=== PATIENT | female | born 1975 | race Caucasian/White ===

== ENCOUNTER → 2016-06-08 | Outpatient (CLI) | payer OTHER ==
[2016-06-08 19:09] LABS: ALT 25 U/L (9-52); AST 22 U/L (14-36); Alkaline Phosphatase 64 U/L (38-126); Anion Gap 13 mmol/L; Blood Urea Nitrogen 9 mg/dL (7-17); Calcium 9.4 mg/dL (8.4-10.2); Carbon Dioxide 25 mmol/L (22-30); Chloride 106 mmol/L (98-107); Cholesterol 202 mg/dL (<200); Glucose 91 mg/dL (74-99); HDL Cholesterol 51 mg/dL (40-60); Non-African American GFR(MDRD) >60 (>60 ml/min/1.73 sqM); Potassium 4.1 mmol/L (3.5-5.1); Sodium 144 mmol/L (137-145); Total Bilirubin 0.4 mg/dL (0.2-1.3); Total Protein 7.8 g/dL (6.3-8.2); Triglycerides 146 mg/dL (<150)
[2016-06-08 19:18] LABS: Anisocytosis Slight; Basophils % (A) 1 %; CH 25.7; CHCM 29.9; Eosinophils # (A) 0.1 k/uL (0-0.7); Eosinophils % (A) 3 %; HDW 2.73; HGB 10.2 gm/dL (11.4-16.0); Hypochromasia Marked; Luc # (Auto) 0.03; Luc % (Auto) 1; Lymphocytes # (A) 0.9 k/uL (1.0-4.8); Lymphocytes % (A) 27 %; MCH 26.6 pg (25.0-35.0); MCHC 30.9 g/dL (31.0-37.0); Mean Platelet Volume 9.2; Monocytes # (A) 0.2 k/uL (0-1.0); Monocytes % (A) 5 %; Neutrophils % (A) 63 %; RBC 3.84 m/uL (3.80-5.40); WBC 3.2 k/uL (3.8-10.6); WBC (Perox) 3.61
== END ==
LOC: MMGSC 10:40
PROVIDERS: ATTEND Family Medicine
DX: Z00.00 Encounter for general adult medical examination without abnormal findings (principal); Z85.850 Personal history of malignant neoplasm of thyroid
CPT/HCPCS: 36415; 80053; 80061; 84439; 84443; 84480; 85025

== ENCOUNTER → 2016-07-06 | Outpatient (CLI) | payer OTHER ==
--- NOTE | 2016-07-06 14:43 | US ---
EXAMINATION TYPE: US thyroid st tissue head/neck DATE OF EXAM: 07/06/2016 12:57 PM COMPARISON: NONE CLINICAL HISTORY: 40 year-old female with history of Thyroid Ca Z85.850. TECHNIQUE: Multiple sonographic images of the thyroid gland are obtained. FINDINGS: GLAND SIZE: Patient is post thyroidectomy in 2006. NODULES RIGHT: # of nodules measured on right thyroid bed: 1. 0.8 X 0.6 x 0.5 cm echogenic solid nodule at the mid thyroidectomy bed with well-defined margins . This nodule is taller than wide and shows trace intranodular vascularity. No prior LEFT: # of nodules measured on left thyroid bed: 2 1. 1.2 X 0.8 x 1.1 cm lobulated hypoechoic mixed nodule at the lower thyroidectomy bed. This nodule is wider than tall and shows no intranodular vascularity. No prior 2. 0.8 X 0.8 x 1.0 cm slightly lobulated hypoechoic solid nodule at the lower thyroidectomy bed. Thi s nodule is wider than tall and shows no intranodular vascularity. No prior ISTHMUS: # of nodules measured in the isthmus: 0 Bilateral neck scanned, no evidence of lymphadenopathy. IMPRESSION: 1. An 8 mm focus of echogenic tissue in the mid right thyroidectomy bed could represent residual or r egenerative glandular parenchyma. 2. Two soft tissue nodules within the left thyroidectomy bed measuring 1.2 and 1.0 cm. Given the leigh ent's history of thyroid cancer, recommend correlation with thyroglobulin and antibody levels. Follo wup and further workup as indicated.
== END | disposition home or self-care (01) ==
LOC: RADUSWWP 12:38
PROVIDERS: ATTEND Family Medicine
DX: Z08 Encounter for follow-up examination after completed treatment for malignant neoplasm (principal); E04.2 Nontoxic multinodular goiter; Z85.850 Personal history of malignant neoplasm of thyroid; Z90.89 Acquired absence of other organs
CPT/HCPCS: 76536

== ENCOUNTER → 2016-07-12 | Outpatient (CLI) | payer OTHER | END | disposition home or self-care (01) | LOC: MMGSC 14:54 | PROVIDERS: ATTEND Family Medicine | DX: Z08 Encounter for follow-up examination after completed treatment for malignant neoplasm (principal); Z85.850 Personal history of malignant neoplasm of thyroid | CPT/HCPCS: 36415; 84432; 86800 ==

== ENCOUNTER 2016-09-10 12:10 | Day surgery (SDC) | payer OTHER ==
[2016-09-10 12:37] VITALS: RESP 14; TEMP 97.7
[2016-09-10] MEDS ORDERED: ALPRAZolam 0.5 MG TAB PO STA (12:52)
[2016-09-10 14:14] VITALS: BP 110/74; PULSE 75
--- NOTE | 2016-09-10 14:38 | US ---
EXAMINATION TYPE: US FNA thyroid DATE OF EXAM: 09/10/2016 COMPARISON: Prior ultrasound 07/06/2016 HISTORY: Thyroid nodule, E04.1 Maximal barrier technique was utilized. Ultrasound using sterile technique. The skin overlying the no dule was localized with ultrasound and the overlying skin prepped and draped. Lidocaine used for loca l anesthesia. 5 passes with a 25-gauge needle were made into the lower pole left thyroid nodule under ultrasound guidance. Aspirate specimen submitted to cytology. Following the procedure hemostasis ach ieved. No immediate complication IMPRESSION: Status post ultrasound-guided fine-needle aspiration of thyroid nodule, pathology pending .
--- NOTE | 2016-09-10 15:12 | US ---
EXAMINATION TYPE: US FNA thyroid DATE OF EXAM: 09/10/2016 COMPARISON: NONE HISTORY: Thyroid nodule, E04.1 Maximal barrier technique was utilized. Ultrasound using sterile technique. The skin overlying the no dule was localized with ultrasound and the overlying skin prepped and draped. Lidocaine used for loca l anesthesia. 5 passes with a 25-gauge needle were made into the mid pole left thyroid nodule under u ltrasound guidance. Aspirate specimen submitted to cytology. Following the procedure hemostasis achie ann. No immediate complication IMPRESSION: Status post ultrasound-guided fine-needle aspiration of thyroid nodule, pathology pending . The right-sided thyroid nodule was not accessed. The echogenic appearance may represent fat, discrete nodule is not identified with certainty. Follow-up recommended.
[2016-09-12 14:28] LABS: Mis test requested (Non-blood) THYROGLOBULIN FNA
[2016-09-12 14:47] LABS: Mis test requested (Non-blood) THYROGLOBULIN FNA
== END 2016-09-10 14:20 | disposition home or self-care (01) ==
LOC: RADPROMAIN 12:10
PROVIDERS: ATTEND Internal Medicine Endocrinology, Diabetes & Metabolism
DX: C73 Malignant neoplasm of thyroid gland (principal)
CPT/HCPCS: 10022; 76942; 84432; 88173; 88305

== ENCOUNTER → 2016-09-26 | Outpatient (CLI) | payer OTHER ==
--- NOTE | 2016-09-26 14:02 | CT ---
EXAMINATION TYPE: CT neck chest w con DATE OF EXAM: 09/26/2016 COMPARISON: NONE HISTORY: Thyroid cancer CT DLP: 682.9 mGycm CONTRAST: CT scan of the neck is performed with IV Contrast, patient injected with 100 mL of Omnipaque 300. Contrast enhanced CT of the neck was performed from the skull base through the lung apices. AIRWAY: The supraglottic, glottic, and subglottic portions of the airway appear patent and free of mass. SALIVARY GLANDS: The submandibular and parotid glands are free of mass or inflammatory process. THYROID GLAND: There are changes of thyroidectomy. Within the lower aspect of the left thyroid bed th ere are 3 nodules identified which measure 1.3 x .8 cm, 1.0 x 0.9 cm and 6 mm respectively. These may reflect lymph nodes. Current disease is not excluded. Right thyroid bed is clear. LYMPH NODES: No adenopathy seen greater than 1cm. LUNG APICES: No nodule or mass is seen. OTHER: Vascular structures are patent. No significant degenerative change of the cervical spine. N o abscess seen. IMPRESSION: Thyroidectomy changes. Nodularity within the lower aspect of the left thyroid bed as [facility] I cannot exclude adenopathy or recurrent lesions. Correlate clinically.
== END | disposition home or self-care (01) ==
LOC: RADCTMAIN 12:55
PROVIDERS: ATTEND Surgery
DX: Z08 Encounter for follow-up examination after completed treatment for malignant neoplasm (principal); E04.1 Nontoxic single thyroid nodule; Z85.850 Personal history of malignant neoplasm of thyroid
CPT/HCPCS: 70491; 71260; Q9967

== ENCOUNTER 2016-11-13 07:05 | Day surgery (SDC) | payer OTHER ==
[2016-11-07 12:14] VITALS: BMI 29.1
[~2016-11-13 07:05] MED LIST: DEXAMETHASONE SOD PHOSPHATE 10 MG/ML 1 ML VIAL IV ONE; HEPARIN SODIUM,PORCINE 5,000 UNIT/ML 1 ML VIAL SQ ONE; LACTATED RINGERS 1,000 ML IV SCH; ONDANSETRON 4 MG/2 ML VIAL IVP ONE; Pre Op ABX Message 1 EACH MISC MISCELLANE ONE
[2016-11-13] MEDS ORDERED: LIDOCAINE 1% 20 ML VIAL (10MG/ML) FOR IV START INTRADERMA ONE (07:51)
[2016-11-13] MEDS ORDERED: ALPRAZolam 0.5 MG TAB PO PRN (07:54)
[2016-11-13] MEDS ORDERED: MIDAZOLAM 2 MG/2 ML VIAL ONE (09:48)
[2016-11-13] MEDS ORDERED: fentaNYL (PF) 50 MCG/ML 2 ML AMP ONE (09:48)
[2016-11-13] MEDS ORDERED: PHENYLEPHRINE-0.9% NACL SYG 1 MG/10 ML SYRINGE ONE (09:48)
[2016-11-13] MEDS ORDERED: HEPARIN SODIUM,PORCINE 5,000 UNIT/ML 1 ML VIAL SQ ONE (09:48)
[2016-11-13] MEDS ORDERED: LIDOCAINE 1% INJ 10MG/ML (20 ML MDV) ONE (09:48)
[2016-11-13] MEDS ORDERED: PROPOFOL 10 MG/ML 20 ML VIAL IV ONE (09:48)
[2016-11-13] MEDS ORDERED: CLINDAMYCIN 150 MG/ML 4 ML VIAL ONE (09:48)
[2016-11-13] MEDS ORDERED: ROCURONIUM BROMIDE 10 MG/ML 10 ML VIAL IV ONE (09:48)
[2016-11-13] MEDS ORDERED: SUCCINYLCHOLINE CHLORIDE 100 MG/5 ML SYR IV ONE (09:48)
[2016-11-13] MEDS ORDERED: LACTATED RINGERS 1,000 ML IV ONE (10:05)
[2016-11-13] MEDS ORDERED: SODIUM CHLORIDE 0.9% 50 ML with CLINDAMYCIN 600 MG IV ONE ×2 (10:17)
[2016-11-13] MEDS ORDERED: THROMBIN (BOVINE) 5,000 UNIT VIAL TOPICAL ONE (11:00)
[2016-11-13] MEDS ORDERED: GELATIN SPONGE,ABSORB (SMALL) 1 EACH SPONGE TOPICAL ONE (11:00)
[2016-11-13] MEDS ORDERED: NALOXONE 0.4 MG/ML 1 ML VIAL IV PRN (11:37)
[2016-11-13] MEDS ORDERED: ONDANSETRON 4 MG/2 ML VIAL IVP PRN (11:37)
--- NOTE | 2016-11-13 11:37 | P.OP ---
Date of Procedure: 11/13/16 Preoperative Diagnosis: Recurrent papillary thyroid cancer Postoperative Diagnosis: Same Procedure(s) Performed: Neck exploration resection of recurrent papillary thyroid cancer Anesthesia: BEKA Surgeon: Cat Contreras Estimated Blood Loss (ml): 15 IV fluids (ml): 1,000 Pathology: other (Tissue left paratracheal area, frozen section the first specimen consistent with papillary thyroid cancer) Condition: stable Disposition: PACU Indications for Procedure: Recurrent papillary thyroid cancer initial thyroidectomy 2011 Operative Findings: three Areas of nodularity left paratracheal area had no other adenopathy or nodularity noted Description of Procedure: The patient is a 41-year-old white female status post thyroid resection in 2012 for papillary thyroid carcinoma. She subsequently had recurrence and another stable and had a resection of recurrence and was treated initially with radioactive iodine. The patient sent for radiographic studies and noted to have an area of concern in the left paratracheal area and biopsy revealed findings consistent with papillary thyroid cancer. The patient was taken to the operative suite and following sedation a nimm nerve stimulator was placed, the neck was prepped and draped in a sterile fashion. An incision was made through the old collar incision down through the skin and subcutaneous tissue and platysma. Superior and inferior skin flaps were developed. Although there was scar tissue we were able to delineate this tissue plane. The trachea was identified and the strap muscles on the left side was dissected from the trachea. Upon performing this the area of the nodularity was identified. This was resected it was approximately 1 cm in size and sent for frozen section evaluation. This was consistent with papillary thyroid cancer. Two additional areas superior to this were identified. The first was approximately 15 mm, in size and the second was approximately 8 mm in size. Both of these were removed in toto. During this process the Nimm nerve stimulator was used to assure that the recurrent laryngeal nerve was not injured. We obtained intraoperative consultation with Dr. Rosario from radiology who confirmed that the areas we had removed were consistent with those which had been seen on ultrasound. Following this careful palpation in the neck and evaluation did not reveal any further adenopathy or lesions of concern. The area of resection was performed from the area of the carotids to the trachea. The recurrent laryngeal nerve was not identified. After we were assured that hemostasis was attained and no further adenopathy or areas of concern in either the right or left neck was noted it was determined that we would terminate the procedure. A small Elliott drain was placed. The strap muscles were closed in the midline. The platysma was closed using 3-0 Vicryl suture. The skin was closed using 4-0 Monocryl. The drain was secured using a nylon suture. The patient tolerated the procedure in stable condition. All instrument and sponge counts were correct at the end of the case.
[2016-11-13] MEDS: HYDROmorphone 0.5 MG/0.5 ML SYRINGE IVP PRN ×2 (12:15→12:21)
[2016-11-13] MEDS: DEXTROSE 5%-0.45% NACL 1,000 ML IV SCH (13:58)
[2016-11-13] MEDS: HYDROmorphone 1 MG/ML 1 ML SYRINGE IV PRN ×3 (14:03→20:46)
[2016-11-13] MEDS: HEPARIN SODIUM,PORCINE 5,000 UNIT/ML 1 ML VIAL SQ SCH (20:45)
[2016-11-13] MEDS: FAMOTIDINE 20 MG TAB PO SCH (20:46)
[2016-11-14 06:26] LABS: Anion Gap 9 mmol/L; Blood Urea Nitrogen 4 mg/dL (7-17); Calcium 8.7 mg/dL (8.4-10.2); Carbon Dioxide 23 mmol/L (22-30); Chloride 108 mmol/L (98-107); Glucose 115 mg/dL (74-99); Magnesium 1.9 mg/dL (1.6-2.3); Non-African American GFR(MDRD) >60 (>60 ml/min/1.73 sqM); Potassium 4.4 mmol/L (3.5-5.1); Sodium 140 mmol/L (137-145)
[2016-11-14] MEDS: LEVOTHYROXINE 100 MCG TAB PO SCH (06:31)
[2016-11-14] MEDS: DEXTROSE 5%-0.45% NACL 1,000 ML IV SCH ×3 (06:31→17:43)
[2016-11-14 06:44] LABS: Basophils % (A) 0 %; CH 25.2; CHCM 30.7; Eosinophils % (A) 0 %; HCT 30.8 % (34.0-46.0); HDW 2.83; HGB 9.5 gm/dL (11.4-16.0); Hypochromasia Moderate; Luc # (Auto) 0.09; Luc % (Auto) 1; Lymphocytes # (A) 0.9 k/uL (1.0-4.8); Lymphocytes % (A) 10 %; MCH 25.4 pg (25.0-35.0); MCHC 30.8 g/dL (31.0-37.0); MCV 82.5 fL (80.0-100.0); Mean Platelet Volume 9.5; Monocytes # (A) 0.5 k/uL (0-1.0); Monocytes % (A) 5 %; Neutrophils # (A) 7.8 k/uL (1.3-7.7); Neutrophils % (A) 84 %; RBC 3.73 m/uL (3.80-5.40); RDW 15.7 % (11.5-15.5); WBC 9.3 k/uL (3.8-10.6); WBC (Perox) 9.94
--- NOTE | 2016-11-14 07:08 | P.CONS ---
History of Present Illness - Reason for Consult Consult date: 11/14/16 medical management post operative Requesting physician: Cat Contreras - Chief Complaint post operative care - History of Present Illness 41 year old female with history of recurrent papillary thyroid carcinoma with Recurrence x3 initial diagnosis 2009 (surgery), then 2011 (Radioactive iodine) , then 2013 (surgery). Now Nodules x3. presented electively for neck dissection due to positive results on PET scan suspicious of recurrence of cancer, frozen section confirmed recurrence of cancer, now patient is seen POD #1 , tolerated procedure well, no difficulty with breathing , swallowing or hoarseness of voice. neck dressing was changed this AM due to being soaked with blood,. patient feels well, and denies any chest pain , SOB, fever or chills. She reports some upper lip tingling and numbness that started after midnight. 3 calcium levels obtained yesterday were unremarkable and stable. Review of Systems Constitutional: Patient reports no fever, no chills, no night sweating, no significant weight changes Eyes: Patient reports no visual changes, no eye pain ENT: Patient reports no ear pain, no rhinorrhea, she reports some mild sore throat post op Cardiovascular: Patient reports no chest pain, no exertional dyspnea, no peripheral leg edema, no orthopnea, no paroxysmal nocturnal dyspnea Respiratory:Patient reports no cough, no wheezing, no shortness of breath Gastrointestinal: Patient reports no diarrhea, no constipation, no nausea no vomiting, no abdominal pain Genitourinary: Patient reports no dysuria, no hematuria, no changes in urinary habits, no genital lesions Musculoskeletal: Patient reports no muscle pain, no joint pain Psychiatric: Patient reports no changes in mood or memory, no suicidal ideation , no anxiety Endocrine: Patient reports no heat intolerance, no cold intolerance, no excessive thirst, no polyuria Neurological: Patient reports no focal neurologic deficits, no weakness, no numbness, She reports upper lip tingling Hem/Lymphatic: Patient reports no bleeding tendency, no bruising, no swollen lymph glands Allergic/Immun: Patient reports no recent allergic reactions Skin: Patient reports no rashes, no pruritis, no ulcers Past Medical History Past Medical History: Blood Disorder, Cancer, CVA/TIA, Deep Vein Thrombosis (DVT ), Thyroid Disorder Additional Past Medical History / Comment(s): Recurrent Papillary Thyroid Cancer x3 initial diagnosis 2009, then 2011, then 2013. Now Nodules x3. Positive for FACTOR 5. DVT & TIA STROKE in 2013. No residual effects. Psoriasis History of Any Multi-Drug Resistant Organisms: None Reported Past Surgical History: Section, Tubal Ligation Additional Past Surgical History / Comment(s): Complete thyroid removed d/t Papillary Thyroid Cancer in 2011. Papillary Thyroid Cancer returned & had it removed again. Nodules x3 now Past Anesthesia/Blood Transfusion Reactions: No Reported Reaction Past Psychological History: Anxiety Additional Psychological History / Comment(s): d/t high dose thyroid medication. Smoking Status: Never smoker Past Alcohol Use History: Rare Past Drug Use History: None Reported - Past Family History Father Family Medical History: Myocardial Infarction ([place]) Mother Family Medical History: Cancer Additional Family Medical History / Comment(s): Breast Cancer at age 23. Medications and Allergies Home Medications and Allergies Comment(s): Reviewed Home Medications Medication Instructions Recorded Confirmed Type Aspirin 325 mg PO DAILY 08/29/16 11/07/16 History Cholecalciferol [Vitamin D3] 5,000 unit PO DAILY 08/29/16 11/13/16 History Ferrous Sulfate [Iron] 325 mg PO DAILY 08/29/16 11/13/16 History Levothyroxine Sodium [Levo-T] 300 mcg PO DAILY 08/29/16 11/13/16 History Allergies Allergy/AdvReac Type Severity Reaction Status Date / Time Penicillins Allergy Unknown Unknown Verified 11/07/16 12:04 Physical Exam Vitals: Vital Signs Temp Pulse Pulse Resp BP BP Pulse Ox 11/14/16 00:00 98.1 F 68 18 93/55 98 11/13/16 20:50 98.5 F 90 18 118/62 97 11/13/16 15:00 97.0 F L 69 19 108/66 97 11/13/16 14:50 76 19 109/73 97 11/13/16 14:00 74 19 98/71 97 11/13/16 13:30 72 19 116/79 94 L 11/13/16 13:15 74 19 117/88 95 11/13/16 13:00 97.2 F L 67 19 109/81 98 11/13/16 12:30 76 16 118/71 97 11/13/16 12:19 73 16 120/66 100 11/13/16 12:04 82 16 128/81 100 11/13/16 11:49 97.6 F 86 14 130/74 100 11/13/16 07:23 97.0 F L 81 16 130/87 99 Intake and Output 11/13/16 11/13/16 11/14/16 14:59 22:59 06:59 Intake Total 2003 580 Output Total 365 Balance 1639 580 Intake: IV 2003 Oral 580 Output: Urine 350 Estimated Blood Loss 15 Other: Voiding Method Toilet # Voids 1 2 Constitutional: No acute distress, conversant, pleasant, speech is coherent negative chvostek sign Eyes: Anicteric sclerae, moist conjunctiva, no lid-lag Pupils equal round reactive to light ENMT: NC/AT Oropharynx clear, no erythema, exudates Neck: Supple, FROM, no masses, or JVD No carotid bruits surgical dressing over anterior lower neck with tinge of blood over the lower aspect, otherwise, intact dressing, no tenderness to palpation Lungs: Clear to auscultation Clear to percussion Normal respiratory effort, no accessory muscle use Cardiovascular: Heart regular in rate and rhythm, No murmurs, gallops, or rubs No peripheral edema Abdominal: Soft Nontender, no guarding, rebound or rigidity Abdomen moving with respiration Normoactive bowel sounds No hepatomegaly, No splenomegaly No palpable mass No abdominal wall hernia noted Skin: Normal temperature, tone, texture, turgor No induration No subcutaneous nodules small alfonzo pink dry macular patches over bilateral knees No ulcers Extremities: No digital cyanosis No clubbing Pedal pulses intact and symmetrical Radial pulses intact and symmetrical No calf tenderness Psychiatric: Alert and oriented to person, place and time Appropriate affect fair judgment Neuro Muscles Strength 5/5 in all 4 extremities Sensation to light touch grossly present throughout Cranial nerves II-XII grossly intact No focal sensory deficits Lymphatics: no palpable cervical or supraclavicular , or inguinal lymph nodes Results CBC & Chem 7: 11/14/16 05:28 Assessment and Plan (1) Papillary thyroid carcinoma Narrative/Plan: POD # 1 recurrent papillary thyroid carcinoma post operative care per primary team check PTHi, Ca, Mg (patient reports perioral numbness) pain control drain care Status: Acute (2) Factor V Leiden Status: Chronic (3) Hypothyroidism (acquired) Narrative/Plan: continue with levothyroxine Status: Acute (4) DVT prophylaxis Narrative/Plan: patient is high risk due to history of FVL currently on heparin SC Status: Acute (5) History of stroke Narrative/Plan: continue with aspirin Status: Chronic Plan: perioral nubmness could be early sing of hypocalcemia , which is a common complication post thyroid surgery which could be related to transient Parathyroid gland shock from decrease blood supply that is usually self limited and improves over hours to days, vs complete damage to the parathyroid gland. close monitoring of calcium level, check PTHi Surrogate decision-maker: Ole Mandujano, Buck CODE STATUS:Full DVT prophylaxis: heparin sc Discussed with: Patient, RN Anticipated discharge: 24-[address]: home Thank you for allowing us to participate in the care of this patient. We will follow closely . Do not hesitate to contact us with questions. Someone can be reached from the [facility] hospitalist group at all hours of the day at [phone].
[2016-11-14 08:38] LABS: Manual Review Performed
--- NOTE | 2016-11-14 09:18 | P.PN ---
Subjective Progress Note Date: 11/14/16 41-year-old female seen and examined at bedside this morning sitting up in bed. Patient reports having a tingly numb sensation to the right upper lip otherwise no difficulty noted in swallowing no voiced hoarseness no difficulty in breathing. The dressing to the neck is dry. Patient states around 10:00 last night the nursing staff did change the dressing with moderate amount of bloody drainage noted. Patient is postop November 13 left neck exploratory resection with ultrasound-guided needle biopsy of the left neck lesion done for positive results on the PET scan suspicious for reoccurrence of cancer frozen section confirmed reoccurrence of cancer patient states after waking up noted that there was a tingly sensation to the right upper lip. Magnesium level this morning 1.9. Calcium level VIII.7. Hemoglobin 9.5. Patient states that she has been followed by her hourly associate Dr. Jurgen bear Objective - Vital Signs Vital signs: Vital Signs Temp 98.1 F 11/14/16 00:00 Pulse 68 11/14/16 00:00 Resp 18 11/14/16 00:00 BP 93/55 11/14/16 00:00 Pulse Ox 98 11/14/16 00:00 Intake & Output 11/13/16 11/14/16 11/14/16 18:59 06:59 18:59 Intake Total 2003 820 Output Total 365 Balance 1639 820 Intake: IV 2004 Oral 820 Output: Urine 350 Estimated Blood Loss 15 Other: Voiding Method Toilet # Voids 1 2 - Exam Physical exam 40-year-old female pleasant no hoarseness noted to the voice no difficulty in swallowing no difficulty in breathing reports a tingly numb sensation to the right upper lip unchanged noted after surgery Neck surgical dressing dry Lungs essentially clear with adequate air movement on room air Heart S1-S2 audible and regular Abdomen soft nontender reports no nausea vomiting no difficulty in swallowing Extremities no edema noted to the lower extremities - Labs CBC & Chem 7: 11/14/16 05:28 11/14/16 05:28 Labs: Abnormal Lab Results - Last 24 Hours (Table) 11/14/16 11/14/16 Range/Units 05:28 05:28 RBC 3.73 L (3.80-5.40) m/uL Hgb 9.5 L (11.4-16.0) gm/dL Hct 30.8 L (34.0-46.0) % MCHC 30.8 L (31.0-37.0) g/dL RDW 15.7 H (11.5-15.5) % Neutrophils # 7.8 H (1.3-7.7) k/uL Lymphocytes # 0.9 L (1.0-4.8) k/uL Chloride 108 H (98-107) mmol/L BUN 4 L (7-17) mg/dL Glucose 115 H (74-99) mg/dL Assessment and Plan Plan: Impression History of chronic factor 5 Leiden Acquired hypothyroid on Synthroid Papillary thyroid carcinoma Recurrent papillary thyroid carcinoma Postop. periOral numbness right upper lip Status post November 13 neck exploration resection of recurrent papillary thyroid cancer with frozen section consistent with papillary thyroid cancer Anemia of chronic illness Plan Continue postop surgical care Resume home meds as appropriate Follow-up on pending labs DVT and GI prophylaxis Hep-Lock IV Prepped for probable discharge within the next 24 hours The above impression and plan of care have been discussed and directed by signing physician. Judith Soto nurse practitioner acting as scribe for signing physician.
[2016-11-14] MEDS: FAMOTIDINE 20 MG TAB PO SCH ×2 (09:44→20:26)
[2016-11-14] MEDS: HEPARIN SODIUM,PORCINE 5,000 UNIT/ML 1 ML VIAL SQ SCH ×2 (09:44→20:26)
[2016-11-14] MEDS: HYDROcodone/APAP 5-325MG 1 EACH TAB PO PRN ×2 (12:24→20:26)
--- NOTE | 2016-11-14 14:22 | P.DS ---
Providers Expected date of discharge: 11/15/16 Attending physician: Cat Contreras Consults: 11/13/16 22:37 Consult Physician Routine Consulting Provider: Rolan Marquez Consult Reason/Comments: medical management Do you want consulting provider notified?: Yes Primary care physician: Stated None Hospital Course: 41-year-old female with a history of recurrent papillary thyroid carcinoma with recurrence 3 initially diagnosed in 2009 surgery in 2011 radioactive iodine and then 2013 surgery. Patient presents on elective admission to undergo neck dissection due to positive results on PET scan suspicious for recurrence of cancer frozen section confirmed recurrent cancer. Patient underwent the procedure on the . Postop did develop mild numbness to the right upper lip tingly sensation calcium levels were monitored closely they were within normal limits magnesium 1.9. The right upper lip numbness improved. There was no voice hoarseness. Surgical site dry and well approximated with Steri-Strips in place [place] drain was removed by Dr. Crowe on the . Patient was felt to be stable and appropriate proceed with a discharge to home. Repeat calcium was in 8.8 Impression History of chronic factor 5 Leiden Acquired hypothyroid on Synthroid Papillary thyroid carcinoma Recurrent papillary thyroid carcinoma Postop. periOral numbness right upper lip Status post November 13 neck exploration resection of recurrent papillary thyroid cancer with frozen section consistent with papillary thyroid cancer Anemia of chronic illness The above impression and plan of care have been discussed and directed by signing physician. Judith Soto nurse practitioner acting as scribe for signing physician. Plan - Discharge Summary New Discharge Prescriptions: New Calcium Carb-Vit D 500Mg-200Un [[place] 500+D] 1 each PO TID #90 tablet HYDROcodone/APAP 5-325MG [[place] 5-325] 1 each PO Q4HR PRN #30 tab PRN Reason: Moderate Pain Continue Levothyroxine Sodium [Levo-T] 300 mcg PO DAILY Aspirin 325 mg PO DAILY Ferrous Sulfate [Iron] 325 mg PO DAILY Cholecalciferol [Vitamin D3] 5,000 unit PO DAILY Discharge Medication List Aspirin 325 mg PO DAILY 08/29/16 [History] Cholecalciferol [Vitamin D3] 5,000 unit PO DAILY 08/29/16 [History] Ferrous Sulfate [Iron] 325 mg PO DAILY 08/29/16 [History] Levothyroxine Sodium [Levo-T] 300 mcg PO DAILY 08/29/16 [History] Calcium Carb-Vit D 500Mg-200Un [[place] 500+D] 1 each PO TID #90 tablet 11/14/16 [ Rx] HYDROcodone/APAP 5-325MG [[place] 5-325] 1 each PO Q4HR PRN #30 tab 11/14/16 [Rx] Follow up Appointment(s)/Referral(s): Cat Contreras MD [STAFF PHYSICIAN] - 11/19/16 9:45 am Chichi Fernández MD [REFERRING] - 1 Week (called office to make pts appt, offic staff will contact pt regarding an opening.) Activity/Diet/Wound Care/Special Instructions: may shower Keep dressing on with Steri-Strips until office visit follow-up Notify the attending of any fever chills May return to work after seen by surgical service and a follow-up visit Discharge Disposition: HOME SELF-CARE
[2016-11-14] MEDS: CALCIUM CARB-VIT D 500MG-200UN 1 EACH TAB PO SCH ×2 (16:22→22:28)
[2016-11-15 08:28] VITALS: BP 121/89; PULSE 80; RESP 20; TEMP 98.5
[2016-11-15] MEDS: FAMOTIDINE 20 MG TAB PO SCH (08:51)
[2016-11-15] MEDS: CALCIUM CARB-VIT D 500MG-200UN 1 EACH TAB PO SCH (08:51)
[2016-11-15] MEDS: LEVOTHYROXINE 100 MCG TAB PO SCH (10:07)
[2016-11-15] MEDS: HEPARIN SODIUM,PORCINE 5,000 UNIT/ML 1 ML VIAL SQ SCH (10:07)
[2016-11-15] MEDS: HYDROcodone/APAP 5-325MG 1 EACH TAB PO PRN (10:37)
== END 2016-11-15 10:40 | disposition home or self-care (01) ==
LOC: OR 07:05 → 6PED 11:42 → OR 11-15 10:40 → 6PED 11-15 14:30
PROVIDERS: ATTEND Surgery
DX: C79.89 Secondary malignant neoplasm of other specified sites (principal); E03.9 Hypothyroidism, unspecified; E72.12 Methylenetetrahydrofolate reductase deficiency; Z86.73 Personal history of transient ischemic attack (TIA), and cerebral infarction without residual deficits; Z86.718 Personal history of other venous thrombosis and embolism; Z79.82 Long term (current) use of aspirin; Z79.899 Other long term (current) drug therapy; Z88.0 Allergy status to penicillin
CPT/HCPCS: 38510; 81025; 88305; 80048; 82310 ×2; 83735; 85025; 88331; 83970; J2250; J1644 ×2; J1100; J2405; J2001; J3010; J1170 ×2; J2370; J0330; J2704

== ENCOUNTER 2018-10-04 19:33 | Emergency (ER) | payer OTHER ==
[2018-10-04 19:44] VITALS: BP 149/86; PULSE 67; RESP 18; TEMP 98.4
[2018-10-04] MEDS ORDERED: CLINDAMYCIN 150 MG CAP PO STA (19:53)
[2018-10-04] MEDS ORDERED: ACET/COD 300 MG/30 MG STARTER PACK 6 TAB BTL PO STA (19:53)
--- NOTE | 2018-10-04 19:58 | ED ---
ENT HPI - General Chief complaint: Dental/Oral Stated complaint: Dental pain Time Seen by Provider: 10/04/18 19:48 Source: patient, RN notes reviewed Mode of arrival: ambulatory Limitations: no limitations - History of Present Illness Initial comments: 42-year-old female presents emergency Department with chief complaint of right upper dental pain. Patient states she has been putting this off and states is gotten worse. Patient states that it is painful to eat or touch the area. Denies any known fever states subjective fevers and chills. She states that she did call oral surgeon who will see her next week. Patient denies any difficulty swallowing. - Related Data Home Medications Medication Instructions Recorded Confirmed Aspirin 325 mg PO DAILY 08/29/16 11/07/16 Cholecalciferol [Vitamin D3 (25 5,000 unit PO DAILY 08/29/16 11/13/16 Mcg = 1000 Iu)] Ferrous Sulfate [Iron] 325 mg PO DAILY 08/29/16 11/13/16 Levothyroxine Sodium [Levo-T] 300 mcg PO DAILY 08/29/16 11/13/16 Previous Rx's Medication Instructions Recorded Calcium Carb-Vit D 500Mg-200Un 1 each PO TID #90 tablet 11/14/16 [Oscal 500+D] HYDROcodone/APAP 5-325MG [Keene 1 each PO Q4HR PRN #30 tab 11/14/16 5-325] Clindamycin HCl 300 mg PO Q6HR #40 cap 10/04/18 Allergies Allergy/AdvReac Type Severity Reaction Status Date / Time Penicillins Allergy Unknown Unknown Verified 10/04/18 19:45 Review of Systems ROS Statement: Those systems with pertinent positive or pertinent negative responses have been documented in the HPI. ROS Other: All systems not noted in ROS Statement are negative. 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 Now Nodules x3. Positive for FACTOR 5. 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 Psoriasis History of Any Multi-Drug Resistant Organisms: None Reported Past Surgical History: Section, Tubal Ligation Additional Past Surgical History / Comment(s): Complete thyroid removed d/t Papillary Thyroid Cancer in 2011. Papillary Thyroid Cancer returned & had it removed again. Nodules x3 now Past Anesthesia/Blood Transfusion Reactions: No Reported Reaction Past Psychological History: Anxiety Smoking Status: Never smoker Past Alcohol Use History: Rare Past Drug Use History: None Reported - Past Family History Father Family Medical History: Myocardial Infarction ([place]) Mother Family Medical History: Cancer Additional Family Medical History / Comment(s): Breast Cancer at age 23. General Exam Limitations: no limitations General appearance: alert, in no apparent distress Head exam: Present: atraumatic, normocephalic, normal inspection Eye exam: Present: normal appearance, PERRL, EOMI. Absent: scleral icterus, conjunctival injection, periorbital swelling ENT exam: Present: mucous membranes moist, TM's normal bilaterally, other (No trismus). Absent: normal oropharynx (Tenderness to tooth #2 there is no drainab le abscess there is a small dental Cristel) Neck exam: Present: normal inspection, full ROM. Absent: tenderness, meningismus, lymphadenopathy Respiratory exam: Present: normal lung sounds bilaterally. Absent: respiratory distress, wheezes, rales, rhonchi, stridor Cardiovascular Exam: Present: regular rate, normal rhythm, normal heart sounds. Absent: systolic murmur, diastolic murmur, rubs, gallop, clicks Course Vital Signs 10/04/18 19:42 Temperature 98.4 F Pulse Rate 67 Respiratory 18 Rate Blood Pressure 149/86 O2 Sat by Pulse 100 Oximetry Medical Decision Making - Medical Decision Making 42-year-old female presented for dental pain. Patient will be treated for Dental infection. Patient started on clindamycin as she is an ALLERGY penicillin products. Disposition Clinical Impression: Toothache, Dental infection Disposition: HOME SELF-CARE Condition: Stable Instructions (If sedation given, give patient instructions): Toothache (ED) Additional Instructions: Please return to the Emergency Department if symptoms worsen or any other c oncerns. Prescriptions: Clindamycin HCl 300 mg PO Q6HR #40 cap Is patient prescribed a controlled substance at d/c from ED?: No Referrals: Alise Teague MD [Primary Care Provider] - 1-2 days Time of Disposition: 19:58
== END 2018-10-04 20:49 | disposition home or self-care (01) ==
LOC: EC 19:33
DX: K04.7 Periapical abscess without sinus (principal); K02.9 Dental caries, unspecified; Z88.0 Allergy status to penicillin; Z79.82 Long term (current) use of aspirin; Z79.890 Hormone replacement therapy; Z79.899 Other long term (current) drug therapy; Z85.850 Personal history of malignant neoplasm of thyroid; Z86.73 Personal history of transient ischemic attack (TIA), and cerebral infarction without residual deficits; Z86.2 Personal history of diseases of the blood and blood-forming organs and certain disorders involving the immune mechanism; E89.0 Postprocedural hypothyroidism
CPT/HCPCS: 99282

== ENCOUNTER 2021-01-06 11:35 | Emergency (ER) | payer OTHER ==
[2021-01-06 11:45] VITALS: BP 156/103; PULSE 85; RESP 18; TEMP 98.1
[2021-01-06] MEDS ORDERED: LIDOCAINE 1% INJ 10MG/ML (20 ML MDV) SQ ONE (12:25)
[2021-01-06] MEDS ORDERED: BACITRACIN OINT 1 EACH PACKET TOPICAL ONE (12:25)
--- NOTE | 2021-01-06 12:25 | ED ---
General Adult HPI - General Chief complaint: Wound/Laceration Stated complaint: hand lac Time Seen by Provider: 01/06/21 12:11 Source: patient, RN notes reviewed Mode of arrival: ambulatory Limitations: no limitations - History of Present Illness Initial comments: 45-year-old female presents to the emergency department for evaluation of laceration to the left thumb. Patient states she cut finger while washing dishes on broken glass. The injury occurred approximately 1 hour prior to arrival. Patient denies any loss of sensation or decreased range of motion; denies any further injuries. Bleeding controlled upon arrival. Tdap up to date. - Related Data Home Medications Medication Instructions Recorded Confirmed Aspirin 325 mg PO DAILY 08/29/16 01/06/21 Levothyroxine Sodium [Synthroid] 300 mcg PO DAILY@1200 01/06/21 01/06/21 Allergies Allergy/AdvReac Type Severity Reaction Status Date / Time Penicillins Allergy Unknown Unknown Verified 01/06/21 13:19 Review of Systems ROS Statement: Those systems with pertinent positive or pertinent negative responses have been documented in the HPI. ROS Other: All systems not noted in ROS Statement are negative. 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 Now Nodules x3. Positive for FACTOR 5. 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 Psoriasis History of Any Multi-Drug Resistant Organisms: None Reported Past Surgical History: Section, Tubal Ligation Additional Past Surgical History / Comment(s): Complete thyroid removed d/t Papillary Thyroid Cancer in 2011. Papillary Thyroid Cancer returned & had it removed again. Nodules x3 now Past Anesthesia/Blood Transfusion Reactions: No Reported Reaction Past Psychological History: Anxiety Smoking Status: Never smoker Past Alcohol Use History: Rare Past Drug Use History: None Reported - Past Family History Father Family Medical History: Myocardial Infarction ([place]) Mother Family Medical History: Cancer Additional Family Medical History / Comment(s): Breast Cancer at age 23. General Exam Limitations: no limitations General appearance: alert, in no apparent distress, other (Well-developed, well- nourished female in no acute distress. Initial temperature 98.1, pulse 85, respirations 18, blood pressure 156/103, pulse ox 99% on room air.) Respiratory exam: Present: normal lung sounds bilaterally. Absent: respiratory distress, wheezes, rales, rhonchi, stridor Cardiovascular Exam: Present: regular rate, normal rhythm, normal heart sounds. Absent: systolic murmur, diastolic murmur, rubs, gallop, clicks Right Forearm Wrist exam: Present: normal inspection, full ROM. Absent: tenderness, swelling Hand Wrist exam: Present: full ROM, tenderness, laceration (2 cm linear laceration to the proximal phalanx of the first digit on the right hand. Distal sensation intact. Bleeding controlled upon arrival.) Neuro motor exam: Present: thumb opposition intact, fingers 2-5 abduction intact Vascular: Present: normal capillary refill, radial pulse, ulnar pulse. Absent: vascular compromise Neurological exam: Present: alert, oriented X3, CN II-XII intact Psychiatric exam: Present: normal affect, normal mood Course Vital Signs 01/06/21 11:43 Temperature 98.1 F Pulse Rate 85 Respiratory 18 Rate Blood Pressure 156/103 O2 Sat by Pulse 99 Oximetry Procedures - Laceration Laceration #1 Consent Obtained: verbal consent Indication: laceration Site: other (1st digit, right hand) Description: linear Depth: simple, single layer Anesthetic Used: lidocaine 1% Anesthesia Technique: local infiltration Pre-repair: wound explored, irrigated extensively Type of Sutures: nylon Size of Sutures: 5-0 Number of Sutures: 3 Technique: simple, interrupted Patient Tolerated Procedure: well, no complications Additional Comments: Tolerated procedure without difficulty. Wound care discussed with patient and spouse. Bacitracin dressing applied. Medical Decision Making - Medical Decision Making 45-year-old female presents to the emergency department for evaluation of 2 cm laceration to the proximal phalanx of the right first digit. Bleeding controlled upon arrival. Injury occurred on a sharp piece of glass, though did not involve any broken or shattered glass. Distal sensation and range of motion intact. Tetanus status up-to-date. Wound cleansed, anesthetized, and 3 sutures were placed without complication. Bacitracin dressing applied. Wound care reviewed with patient and spouse. Instructed to have sutures removed in 7- 10 days. She will be discharged home to follow up with primary care provider for a recheck. Return parameters were discussed in detail. Patient verbalizes understanding and agrees with this plan. This patient was discussed with my attending . Disposition Clinical Impression: Laceration of thumb, right Disposition: HOME SELF-CARE Condition: Stable Instructions (If sedation given, give patient instructions): Care For Your Stitches (ED), Laceration (ED) Additional Instructions: Sutures out in 7-10 days. Keep wound clean, dry, and intact. Apply bacitracin and change dressing twice daily. Monitor for signs of infection. Follow-up with primary care provider for a recheck on Saturday. Return to the emergency department with any new, worsening, or concerning symptoms. Is patient prescribed a controlled substance at d/c from ED?: No Referrals: Alise Teague MD [Primary Care Provider] - 1-2 days Time of Disposition: 13:50
== END 2021-01-06 14:55 | disposition home or self-care (01) ==
LOC: EC 11:35
DX: S61.011A Laceration without foreign body of right thumb without damage to nail, initial encounter (principal); Z79.890 Hormone replacement therapy; Z79.82 Long term (current) use of aspirin; Z88.0 Allergy status to penicillin; W25.XXXA Contact with sharp glass, initial encounter
CPT/HCPCS: 12001; 99282; J2001

== ENCOUNTER 2023-12-10 13:03 | Emergency (ER) | payer BC ==
[2023-12-10 13:13] VITALS: RESP 18; TEMP 99.2
--- NOTE | 2023-12-10 13:33 | ED ---
General Adult HPI - General Source: patient Mode of arrival: ambulatory Limitations: no limitations <Cristi Stark - Last Filed: 12/10/23 14:51> <Ananda Santos - Last Filed: 12/10/23 16:38> - General Chief complaint: Abdominal Pain Stated complaint: low back pain, diarriah Time Seen by Provider: 12/10/23 13:15 - History of Present Illness Initial comments: Dictation was produced using Med ePad dictation software. please excuse any grammatical, word or spelling errors. Chief Complaint: 48-year-old female presents with abdominal pain History of Present Illness: Patient is a 48-year-old female states that for the last month she has been having daily abdominal pain states that it is crampy feels like it is of the lower abdomen. She notices that her stool is abnormal with bouts of diarrhea. Denies any nausea. No fever. Started to feel like over the last 3 days it has been getting worse start to feel like it is getting in her lower back. The ROS documented in this emergency department record has been reviewed and confirmed by me. Those systems with pertinent positive or negative responses laguerre ve been documented in the HPI. All other systems are other negative and/or noncontributory. (Cristi Stark) - Related Data Home Medications Medication Instructions Recorded Confirmed Aspirin 325 mg PO DAILY 08/29/16 01/06/21 Levothyroxine Sodium [Synthroid] 300 mcg PO DAILY@1200 01/06/21 01/06/21 Previous Rx's Medication Instructions Recorded Lidocaine 5% Patch [Lidoderm 5% 1 patch TOPICAL DAILY 14 Days #14 12/10/23 Patch] patch Allergies Allergy/AdvReac Type Severity Reaction Status Date / Time Penicillins Allergy Unknown Unknown Verified 12/10/23 13:13 Review of Systems ROS Other: All systems not noted in ROS Statement are negative. <Cristi Stark - Last Filed: 12/10/23 14:51> ROS Other: All systems not noted in ROS Statement are negative. <Ananda Santos - Last Filed: 12/10/23 16:38> ROS Statement: Those systems with pertinent positive or pertinent negative responses have been documented in the HPI. 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 Now Nodules x3. Positive for FACTOR 5. 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 Psoriasis History of Any Multi-Drug Resistant Organisms: None Reported Past Surgical History: Section, Tubal Ligation Additional Past Surgical History / Comment(s): Complete thyroid removed d/t Papillary Thyroid Cancer in 2011. Papillary Thyroid Cancer returned & had it removed again. Nodules x3 now Past Anesthesia/Blood Transfusion Reactions: No Reported Reaction Past Psychological History: Anxiety Smoking Status: Never smoker Past Alcohol Use History: Rare Past Drug Use History: None Reported - Past Family History Father Family Medical History: Myocardial Infarction ([place]) Mother Family Medical History: Cancer Additional Family Medical History / Comment(s): Breast Cancer at age 23. <Cristi Stark - Last Filed: 12/10/23 14:51> General Exam Limitations: no limitations <Cristi Stark - Last Filed: 12/10/23 14:51> - General Exam Comments Initial Comments: PHYSICAL EXAM: General Impression: Alert and oriented x3, not in acute distress HEENT: Normocephalic atraumatic, extra-ocular movements intact, pupils equal and reactive to light bilaterally, mucous membranes moist. Cardiovascular: Heart regular rate and rhythm Chest: Able to complete full sentences, no retractions, no tachypnea Abdomen: abdomen soft, non-tender, non-distended, no organomegaly Musculoskeletal: Pulses present and equal in all extremities, no peripheral edema Motor: no focal deficits noted Neurological: CN II-XII grossly intact, no focal motor or sensory deficits noted Skin: Intact with no visualized rashes Psych: Normal affect and mood (Cristi Stark) Course Vital Signs 12/10/23 13:10 Temperature 99.2 F Pulse Rate 87 Respiratory 18 Rate Blood Pressure 138/87 O2 Sat by Pulse 99 Oximetry Medical Decision Making - Lab Data Result diagrams: 12/10/23 13:37 12/10/23 13:37 <Cristi Stark - Last Filed: 12/10/23 14:51> - Lab Data Result diagrams: 12/10/23 13:37 12/10/23 13:37 <Ananda Santos - Last Filed: 12/10/23 16:38> - Medical Decision Making Was pt. sent in by a medical professional or institution (, PA, [employer], urgent care, hospital, or senior living...) When possible be specific @ -No Did you speak to anyone other than the patient for history (EMS, parent, family, police, friend...)? What history was obtained from this source @ -No Did you review nursing and triage notes (agree or disagree)? Why? @ -I reviewed and agree with nursing and triage notes Were old charts reviewed (outside hosp., previous admission, EMS record, old EKG, old radiological studies, urgent care reports/EKG's, senior living records)? Report findings @ -No old charts were reviewed Differential Diagnosis (chest pain, altered mental status, abdominal pain women, abdominal pain men, vaginal bleeding, musculoskeletal, weakness, fever, dyspnea, syncope, headache, dizziness, GI bleed, back pain, seizure, CVA, palpatations, mental health)? @ -Differential Abdominal Pain Women: Appendicitis, Cholecystitis, diverticulosis, ischemic bowel, pancreatitis, hepatitis, UTI, gastroenteritis, AAA, incarcerated hernia, bowel obstruction, constipation, inflammatory bowel, hepatitis, peptic ulcer disease, splenic infarction, perforated viscus, vulvitis, ovarian torsion, PID, kidney stone, placenta abruption, this is not meant to be an all-inclusive list EKG interpreted by me (3pts min.). @ -None done X-rays interpreted by me (1pt min.). @ -None done CT interpreted by me (1pt min.). @ -CT of the abdomen pelvis shows bulky uterus. Radiology recommends ultrasound U/S interpreted by me (1pt. min.). @ -Pending What testing was considered but not performed or refused? (CT, X-rays, U/S, labs)? Why? @ -None What meds were considered but not given or refused? Why? @ -None Was smoking cessation discussed for >3mins.? @ -No Were there social determinants of health that impacted care today? How? (Homelessness, low income, unemployed, alcoholism, drug addiction, transportation, low edu. Level, literacy, decrease access to med. care, [facility], rehab)? @ -No Was there de-escalation of care discussed even if they declined (Discuss DNR or withdrawal of care, Hospice)? DNR status @ -No What co-morbidities impacted this encounter? (DM, HTN, Smoking, COPD, CAD, Can cer, CVA, ARF, Chemo, Hep., AIDS, mental health diagnosis, sleep apnea, morbid obesity)? @ -None Was patient admitted / discharged? Hospital course, mention meds given and route, prescriptions, significant lab abnormalities, going to OR and other pertinent info. @ -48-year-old female presents to the emergency department worsening lower abdominal pain. Vital signs upon arrival are within acceptable limits. CT of the abdomen and pelvis shows bulky uterus. Laboratory evaluation is unremarkable. Ultrasound ordered. Patient care signed out to Dr. Santos at 3:00 PM for follow-up of pending ultrasound. Did you discuss the management of the patient with other professionals (professionals i.e. , PA, [employer], lab, RT, psych nurse, licensed clinical social worker, cloth spreader screen printing, teacher, dog control officer, casework specialist)? Give summary @ -No Was critical care preformed (if so, how long)? @ -No Undiagnosed new problem with uncertain prognosis? @ -No Drug Therapy requiring intensive monitoring for toxicity (Heparin, Nitro, Insulin, Cardizem)? @ -No Were any procedures done? @ -No Diagnosis/symptom? Acute, or Chronic, or Acute on Chronic? Uncomplicated (without systemic symptoms) or Complicated (systemic symptoms)? @ -Abdominal pain (Cristi Stark) Signed out to me pending results of ultrasound. Originally came in for abdominal pain with some back pain and was worried about her gallbladder. Workup so far unremarkable in terms of acute process on labs. CT imaging as reported by previous ED provider as well as radiology showed large bulky uterus with some endometrial irregularity which recommended an ultrasound. Patient also had a focal dilated blood vessel in the left lung base requiring future follow-up. Ultrasound is interpreted by myself reveals endometrial thickening that is irregular. I agree with assessment by radiology over concern for possible m alignancy. I discussed the results with the patient at length. This includes the findings of the enlarged blood vessel on CT as well as the endometrial irregularity concerning for neoplasm. Patient does have a history of thyroid cancer. She does not have an [facility] for follow-up. I will provide her with outpatient follow-up for FIRE LOOKOUT but also recommended she follow-up with her PCP and possibl y obtain [facility] follow-up if local OB is unable to fit her into their schedule. She was in agreement this plan. I will provide her with a work note for this week to try to iron out all of these details and obtain close follow-up. She understands the urgency for close follow-up. Answered all questions that she had. She will be discharged home at this time with strict return precautions. She is discharged home with discs of her imaging. Recommended starting with pulmonology follow-up concerning the dilated blood vessel in the left lung base and I will provide her with contact information. I will provide the patient with a prescription for Tylenol 3 starter pack, lidocaine patches. I instructed the patient to follow up with their PCP in the next 1-3 days. I provided contact information for follow up with FIRE LOOK[facility] Dr. Palma as well as pulmonology Dr. Gibson. I explained that the patient should return to the emergency department if they experience any worsening symptoms. Strict return precautions were discussed with the patient. The patient expressed understanding of these instructions. I answered all questions that the patient had. The patient was discharged home in fair condition with their prescriptions and follow up information. Diagnosis/symptom? @ -Abdominal pain of unknown etiology, endometrial thickening, dilated blood vessel of left lung base of unknown significance Acute, or Chronic, or Acute on Chronic? @ -Acute Uncomplicated (without systemic symptoms) or Complicated (systemic symptoms)? @ -Complicated Side effects of treatment? @ -None Exacerbation, Progression, or Severe Exacerbation] @ -No Poses a threat to life or bodily function? @ -Potentially eventually, if patient does not receive follow-up as the concerns for malignancy which is life-threatening. (Ananda Santos) - Lab Data Lab Results 12/10/23 12/10/23 Range/Units 13:37 13:37 WBC 6.7 (3.8-10.6) k/uL RBC 4.92 (3.80-5.40) m/uL Hgb 10.3 L (11.4-16.0) gm/dL Hct 34.2 (34.0-46.0) % MCV 69.7 L (80.0-100.0) fL MCH 21.0 L (25.0-35.0) pg MCHC 30.1 L (31.0-37.0) g/dL RDW 16.6 H (11.5-15.5) % Plt Count 243 (150-450) k/uL MPV 7.4 Neutrophils % 79 % Lymphocytes % 14 % Monocytes % 5 % Eosinophils % 1 % Basophils % 0 % Neutrophils # 5.3 (1.3-7.7) k/uL Lymphocytes # 0.9 L (1.0-4.8) k/uL Monocytes # 0.3 (0-1.0) k/uL Eosinophils # 0.1 (0-0.7) k/uL Basophils # 0.0 (0-0.2) k/uL Hypochromasia Marked Anisocytosis Slight Microcytosis Marked Sodium 140 (137-145) mmol/L Potassium 4.4 (3.5-5.1) mmol/L Chloride 107 (98-107) mmol/L Carbon Dioxide 22 (22-30) mmol/L Anion Gap 11 mmol/L BUN 12 (7-17) mg/dL Creatinine 0.66 (0.52-1.04) mg/dL Est GFR (CKD-EPI)AfAm >90 (>60 ml/min/1.73 sqM) Est GFR (CKD-EPI)NonAf >90 (>60 ml/min/1.73 sqM) Glucose 110 H (74-99) mg/dL Calcium 9.1 (8.4-10.2) mg/dL Total Bilirubin 0.3 (0.2-1.3) mg/dL AST 25 (14-36) U/L ALT 14 (4-34) U/L Alkaline Phosphatase 55 (38-126) U/L Total Protein 7.6 (6.3-8.2) g/dL Albumin 4.6 (3.5-5.0) g/dL Lipase 83 (23-300) U/L Disposition <Cristi Stark - Last Filed: 12/10/23 14:51> Is patient prescribed a controlled substance at d/c from ED?: No Time of Disposition: 16:18 <Ananda Santos - Last Filed: 12/10/23 16:38> Clinical Impression: Abdominal pain, Thickened endometrium, Abdominal pain of unknown etiology Disposition: HOME SELF-CARE Condition: Fair Instructions (If sedation given, give patient instructions): Abdominal Pain (ED) Additional Instructions: You have an endometrial irregular thickening on imaging with concern for possible endometrial malignancy. You need close follow-up with [facility]. You will be provided with discs and reads for the imaging results. You also have a dilated blood vessel in the left lung base of unknown significance. Start with follow-up with pulmonology regarding this. Please return to the emergency department for any concerns. Follow-up with your PCP as well as they may refer you to specific physicians for follow-up. Prescriptions: Lidocaine 5% Patch [Lidoderm 5% Patch] 1 patch TOPICAL DAILY 14 Days #14 patch Referrals: Alise Teague MD [Primary Care Provider] - 1-2 days Geoffrey Gibson DO [Doctor of Osteopathic Medicine] - 1-2 days Carmen Palma DO [Doctor of Osteopathic Medicine] - 1-2 days
[2023-12-10 13:46] LABS: Anisocytosis Slight; Basophils % (A) 0 %; Eosinophils # (A) 0.1 k/uL (0-0.7); Eosinophils % (A) 1 %; HCT 34.2 % (34.0-46.0); HGB 10.3 gm/dL (11.4-16.0); Hypochromasia Marked; Lymphocytes # (A) 0.9 k/uL (1.0-4.8); Lymphocytes % (A) 14 %; MCHC 30.1 g/dL (31.0-37.0); MCV 69.7 fL (80.0-100.0); Mean Platelet Volume 7.4; Microcytosis Marked; Monocytes # (A) 0.3 k/uL (0-1.0); Monocytes % (A) 5 %; Neutrophils # (A) 5.3 k/uL (1.3-7.7); Neutrophils % (A) 79 %; Platelet Count 243 k/uL (150-450); RBC 4.92 m/uL (3.80-5.40); RDW 16.6 % (11.5-15.5); WBC 6.7 k/uL (3.8-10.6)
[2023-12-10 14:01] LABS: ALT 14 U/L (4-34); AST 25 U/L (14-36); African American GFR (CKD) >90 (>60 ml/min/1.73 sqM); Albumin 4.6 g/dL (3.5-5.0); Alkaline Phosphatase 55 U/L (38-126); Anion Gap 11 mmol/L; Blood Urea Nitrogen 12 mg/dL (7-17); Calcium 9.1 mg/dL (8.4-10.2); Carbon Dioxide 22 mmol/L (22-30); Chloride 107 mmol/L (98-107); Glucose 110 mg/dL (74-99); Lipase 83 U/L (23-300); Non-African American GFR(CKD) >90 (>60 ml/min/1.73 sqM); Potassium 4.4 mmol/L (3.5-5.1); Sodium 140 mmol/L (137-145); Total Bilirubin 0.3 mg/dL (0.2-1.3); Total Protein 7.6 g/dL (6.3-8.2)
--- NOTE | 2023-12-10 14:31 | CT ---
EXAMINATION TYPE: CT abdomen pelvis w con DATE OF EXAM: 12/10/2023 COMPARISON: None INDICATION: Abdominal pain, diarrhea DLP: 781.1 mGycm, Automated exposure control for dose reduction was used. CONTRAST: 100 ml mL of Isovue 370. Study performed without Oral Contrast TECHNIQUE: Axial images were obtained from above the diaphragm to the pubic rami in the axial plane a t 5 mm thick sections. Reconstructed images are reviewed on the computer in the coronal plane. FINDINGS: Limited CT sections are obtained the lung bases. There is a focal area of dilated pulmonary vessel i n the left lower lung field, series 201 and 6. This measures 0.8 cm. This could be confirmed with con trast CT. Follow-up can be performed. CT ABDOMEN: Liver: Normal Spleen: Normal Pancreas: Normal Adrenal glands: The adrenal glands are normal. Gallbladder: Normal Kidneys: No masses are evident. No hydronephrosis is present. No cysts are present. Delayed images were obtained through the kidneys, which remain unremarkable. Aorta: Normal Inferior vena cava: Normal. CT PELVIS: Loops of bowel within the abdomen and pelvis are normal. Multiple high density areas are noted withi n the descending colon region can be related to ingested products such as milk of magnesia. Scattered diverticula are present without acute diverticulitis. Suspicion dilated loops of bowel are nondilat ed. Appendix: Normal as visualized. Urinary bladder: Normal. Genitourinary structures: Uterus is large and bulky. Endometrial canal appears somewhat prominent. Th is has some undulation. Underlying polyp or mass not excluded. Consider additional evaluation with ul trasound. Adnexa appear normal. Follicles on the right ovary. Osseous structures: No suspicious lytic or sclerotic lesions. IMPRESSION: 1. Enlarged bulky uterus with some irregularity of the endometrial canal. Additional workup with ult rasound is recommended. 2. Appears to be a focal dilated vessel within the left lung base. Follow-up when the patient is stab le can be performed. 3. Diverticulosis without acute diverticulitis. [facility], Workstation: [facility], 12/10/2023 2:29 PM
--- NOTE | 2023-12-10 15:29 | US ---
EXAMINATION TYPE: US pelvic complete DATE OF EXAM: 12/10/2023 COMPARISON: CT 12/10/2023 CLINICAL INDICATION: Female, 48 years old with history of abnormal CT; TECHNIQUE: . Transabdominal grayscale, color Doppler and spectral Doppler sonographic images of the pelvis were acquired. Transvaginal sonographic images were not medically necessary FINDINGS: Date of LMP: 11/28/2023 EXAM MEASUREMENTS: Uterus: 12.2 x 4.7 x 7.6 cm Endometrial Stripe: 1.6 cm Right Ovary: 3.6 x 2.4 x 3.6 cm Left Ovary: 3.5 x 1.8 x 2.6 cm 1. Uterus: Anteverted Heterogenous areas seen right lateral lower uterine segment and midline uter ine fundus 2. Endometrium: complex within 3. Right Ovary: wnl 4. Left Ovary: wnl Spectral, color and waveform doppler imaging shows good arterial and venous flow within the ovaries ; there is no evidence for ovarian torsion. 5. Bilateral Adnexa: wnl 6. Posterior cul-de-sac: wnl IMPRESSION: 1. Irregular endometrial canal with thickened endometrium and ill-defined margins. Evaluate for neopl asm. [facility], Workstation: [facility], 12/10/2023 3:27 PM
[2023-12-10] MEDS: ACET/COD 300 MG/30 MG STARTER PACK 6 TAB BTL PO STA (16:31)
[2023-12-10 16:39] VITALS: BP 134/87; PULSE 73
== END 2023-12-10 16:40 | disposition home or self-care (01) ==
LOC: EC 13:03
CPT/HCPCS: 36415; 74177; 76856; 80053; 83690; 85025; 93975; 99284

== ENCOUNTER → 2024-01-13 | Outpatient (CLI) | payer BC ==
--- NOTE | 2024-01-13 20:25 | CT ---
EXAMINATION TYPE: CT chest w con DATE OF EXAM: 01/13/2024 6:34 PM COMPARISON: 09/26/2016, CT 12/10/2023 CLINICAL INDICATION: Female, 48 years old with history of R93.89 ABNORMAL IMAGING OF CHEST; [facility], F/u for abnormal lung finding on abd/pelvis CT done on 12/10/23. TECHNIQUE: Multiple axial images were obtained through the chest. Sagittal and coronal reformats were created for review. MIP was performed on a separate workstation. Contrast used:100ml mL of Isovue 300 with IV Contrast (None if empty) Oral contrast used: (None if empty) CT DLP: 291.2 mGycm, Automated exposure control for dose reduction was used. FINDINGS: LUNGS/ PLEURA: No focal consolidation, pneumothorax or pleural effusion. AIRWAY: Patent and unremarkable. HEART: Size within normal limits. MEDIASTINUM: No gross evidence of adenopathy. VASCULATURE: No aortic aneurysm. MUSCULOSKELETAL: No acute osseous abnormalities SOFT TISSUES/LYMPH NODES: Unremarkable. LOWER NECK: Left paratracheal lymph node is unchanged from prior back to 2017 measuring up to 8 mm se aileen 7 image 8 UPPER ABDOMEN: No significant findings. IMPRESSION: 1. Focal dilated left lower lobe bronchus bifurcation stable from prior exam stable back to 2017. No suspicious pulmonary nodules, masses or evidence for acute process. 2. The left paratracheal lymph node back to 2017. Follow up recommendations for incidental pulmonary nodules, if there are any, are per [employer] or [employer]. https://radiopaedia.org/articles/fbxruvvnre-dyqtcsu-bdtnupyer-hzrgto-dcghfrybwbaniku-1?lang=us [facility], , 01/13/2024 8:22 PM
== END | disposition home or self-care (01) ==
LOC: RADCTMAIN 16:58
PROVIDERS: ATTEND Internal Medicine
DX: J98.09 Other diseases of bronchus, not elsewhere classified (principal); R93.89 Abnormal findings on diagnostic imaging of other specified body structures
CPT/HCPCS: 71260; Q9967